=== PATIENT | male | born 1975 | race Caucasian/White ===

== ENCOUNTER 2017-12-04 13:13 | Emergency (ER) | payer OTHER ==
[2017-12-04] MEDS ORDERED: Metoclopramide IV* 5 MG/ML 2 ML VIAL IV ONE (16:00)
[2017-12-04] MEDS ORDERED: HYDROmorphone INJ* 1 MG/ML CARPUJECT SYRINGE IV ONE ×2 (16:00→18:08)
[2017-12-04 16:19] LABS: ABS Basophils 0 10^3/ul (0-0.2); ABS Eosinophils 0.1 10^3/ul (0-0.6); ABS Lymphocytes 1.1 10^3/ul (1.0-4.8); ABS Monocytes 0.6 10^3/ul (0-0.8); ABS Neutrophils 5.2 10^3/ul (1.5-7.7); ABS Nucleated RBC 0 10^3/ul; Eosinophil % 1.1 % (0-6); Hematocrit 37 % (42-52); Hemoglobin 12.7 g/dl (14.0-18.0); Lymphocyte % 15.7 % (25-47); Mean Corpuscular HGB Conc 34 g/dl (31-36); Mean Corpuscular Hemoglobin 30 pg (27-31); Mean Corpuscular Volume 87 fL (80-94); Mean Platelet Volume 8.2 um3 (7.4-10.4); Nucleated Red Blood Cells % 0.1; Platelet Count 257 10^3/ul (150-450); Red Blood Count 4.27 10^6/ul (4.0-5.4); Red Cell Distribution Width 13 % (10.5-15)
[2017-12-04] MEDS ORDERED: HYDROmorphone INJ* 2 MG/ML CARPUJECT SYRINGE ONE (16:22)
--- NOTE | 2017-12-04 17:24 | RAD ---
HISTORY: Right upper quadrant pain x1 day and nausea x2 weeks. Patient also reports 20 pound weight loss in 3 weeks. COMPARISONS: Similar examination March 31, 2014. TECHNIQUE: Multiple transverse and longitudinal ultrasound images were obtained of the right upper quadrant. FINDINGS: LIVER: Relative to the previous ultrasound there has been development of diffuse heterogeneity of the liver. The liver is enlarged measuring 22.5 cm in greatest dimension. Normal hepatic and portal venous blood flow is duplicated with color flow imaging. There is no gross intrahepatic biliary duct dilatation. GALLBLADDER AND EXTRAHEPATIC BILIARY DUCT: The gallbladder is normal in appearance without intraluminal stones or other soft tissue masses. There is no pericholecystic fluid or gallbladder wall thickening. The common bile duct measures a maximum diameter of 3 mm. PANCREAS: The portions of the pancreas not obscured by bowel gas are normal in appearance. RIGHT KIDNEY: The right kidney measures 11.1 x 3.6 x 3.4 cm. The renal parenchyma appears to extend toward the midline beneath the superior mesenteric artery, a morphology consistent with a horseshoe kidney. AORTA AND IVC: The visualized portions are normal in appearance and not pathologically dilated. IMPRESSION: 1. THERE HAS BEEN INTERVAL DEVELOPMENT OF DIFFUSE HETEROGENEITY OF THE LIVER WHICH IS NOW MILDLY ENLARGED MEASURING 22.5 CM IN GREATEST CEPHALOCAUDAL DIMENSION. THIS IS NEW SINCE THE [address] OF THE ABDOMEN AND PELVIS INCLUDING 4 PHASE LIVER IMAGING PROTOCOL. 2. POSSIBLE HORSESHOE KIDNEY.
[2017-12-04] MEDS ORDERED: Iohexol 300* (CONTRAST) 10 ML SDV IV ONE (17:53)
[2017-12-04 17:55] VITALS: BP 123/67
[2017-12-04 18:02] LABS: Urine Appearance Clear; Urine Blood Negative (Negative); Urine Color Yellow; Urine Ketones Negative (Negative); Urine Protein Negative (Negative); Urine Specific Gravity 1.006 (1.010-1.030); Urine Urobilinogen Negative (Negative)
--- NOTE | 2017-12-04 19:10 | RAD ---
CLINICAL HISTORY: Right upper quadrant pain COMPARISON: Same day ultrasound of the right upper quadrant that demonstrates an enlarged and heterogeneous liver TECHNIQUE: Contrast enhanced CT examination of the abdomen and pelvis from the lung bases through the initial tuberosities. The patient received 117 mL Omnipaque 300 intravenously prior to imaging. Imaging of the abdomen was acquired noncontrast, arterial phase and delayed 5 minutes in addition to standard portal venous phase according to a 4 phase liver examination. The patient received oral contrast as well prior to imaging. FINDINGS: VISUALIZED LUNG BASES: At the right lower lobe there is a 3.6 cm soft tissue mass. Additional subcentimeter nodules are seen in the lower lobes. There is no pleural effusion. ABDOMEN AND PELVIS: The spleen and adrenal glands are grossly normal in appearance. The liver is a greatly enlarged measuring 23 cm in greatest cephalocaudal projection and up to 26 cm in the axial plane. The liver is heterogeneous with innumerable hypoenhancing lesions throughout. These lesions are most readily apparent on the portal venous phase. For example there is a low-attenuation lesion measuring 2.2 cm in the right lobe of the liver (series 5 image 27). The biliary ducts are prominent but not pathologically dilated. The head of the pancreas is enlarged measuring 3.4 cm in greatest axial dimension. The gallbladder is normal. There is a horseshoe kidney. The kidney is otherwise normal in appearance without signs of obstruction or suspicious masses. Immediately posterior and lateral to the right psoas muscle is a 1 cm soft tissue nodule (axial image 41, series 5) of uncertain clinical significance. Evaluation of the gastrointestinal tract is limited without oral contrast. The small and large bowel are not distended. There is no gross retroperitoneal or mesenteric lymphadenopathy. The pelvic viscera is normal in appearance. 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 The abdominal aorta and iliac arteries are normal in course and diameter. There is an 8 determine and compression fracture involving the right of midline posterior inferior L1 vertebral body. At the right of midline posterior and inferior portion of the L2 vertebral body there is a focal lucent lesion. At the left of midline anterior L4 vertebral body there is a 1 cm lucent lesion. IMPRESSION: 1. The enlarged liver is largely replaced by low-attenuation lesions, the larger lesions likely have necrotic centers. There is an isoattenuating 3.4 cm mass at the pancreatic head suspicious for pancreatic cancer in this clinical setting. 2. There is a 3.6 cm right lower lobe pulmonary mass in addition to subcentimeter lesions in the bilateral lung bases. 3. Lucent lesions in the vertebral bodies are likely metastases in this clinical setting. 4. Incidentally noted is a horseshoe kidney without acute renal abnormality.
--- NOTE | 2017-12-04 20:21 | ED ---
Justo Taveras Natalie, scribed for Marlon Liao MD on 12/04/17 at 1604 . Abdominal Pain/Male - HPI Summary HPI Summary: The pt is a 42 y/o M presenting to the ED c/o RUQ abd pain starting three weeks ago, worsening last night into this morning. The pain radiates to his back, feeling like a pulled muscle. The pain is described as sharp and intense as if hes being shot or stabbed. The pain is rated 6/10 in severity. The pain is aggravated by movement and sitting up. The pain is alleviated by rest and lying down. Pt denies nausea and abnormal BM/urination. He states he has had this pain before with bloating and nausea during eating, but its worse now. He is not currently nauseous. He has had imaging done before, and the pain has gone away after eating better. Today, the pt has eaten and [place] muffin and chicken salad wrap without any effect. PSHx: lymphnode biopsy, cosmetic reconstruction of toe. - History of Current Complaint Chief Complaint: EDAbdPain Stated Complaint: FLANK PAIN Time Seen by Provider: 12/04/17 15:50 Hx Obtained From: Patient Onset/Duration: Sudden Onset, Lasting Weeks - three weeks, Still Present, Worse Since - last night Pain Intensity: 6 Pain Scale Used: 0-10 Numeric Location: Discrete At: RUQ Radiates: Yes Radiates to: Back Character: Sharp, Other: - intense, stabbing Aggravating Factor(s): Movement, Other: - sitting up Alleviating Factor(s): Other: - rest, lying down Associated Signs And Symptoms: Negative: Urinary Symptoms, Decreased Appetite, Nausea - Allergies/Home Medications Allergies/Adverse Reactions: Allergies Allergy/AdvReac Type Severity Reaction Status Date / Time No Known Allergies Allergy Verified 12/04/17 13:18 Home Medications: Home Medications Hydrocodone/Acetamin 10/325(NF [Luebbering 10/325 (NF)] 1 - 2 tab PO .Q4-6H PRN 12/04 [History Confirmed 12/04/17] Sucralfate TAB* [Carafate*] 1 gm PO ACHS 12/04/17 [History Confirmed 12/04/17] PMH/Surg Hx/FS Hx/Imm Hx Opthamlomology History: Denies: Hx Legally Blind EENT History: Denies: Hx Deafness - Surgical History Surgery Procedure, Year, and Place: lymphnode biopsy (2000), cosmetic reconstruction of toe Infectious Disease History: No Infectious Disease History: Denies: Traveled Outside the [place] in Last 30 Days - Family History Known Family History: Negative: Hypertension Review of Systems Positive: Abdominal Pain - RUQ, radiating to back, Other - normal BM. Negative : Nausea Positive: other - normal urination All Other Systems Reviewed And Are Negative: Yes Physical Exam - Summary Physical Exam Summary: Appearance: The patient is well-nourished in no acute distress and in no acute pain. Skin: The skin is warm and dry and skin color reflects adequate perfusion. HEENT: The head is normocephalic and atraumatic. The pupils are equal and reactive. The conjunctivae are clear and without drainage. Nares are patent and without drainage. Mouth reveals moist mucous membranes and the throat is without erythema and exudate. The external ears are intact. The ear canals are patent and without drainage. The tympanic membranes are intact. Neck: the neck is supple with full range of motion and non-tender. There are no carotid bruits. There is no neck vein distension. Respiratory: Chest is non-tender. Lungs are clear to auscultation and breath sounds are symmetrical and equal. Cardiovascular: Heart is regular rate and rhythm. There is no murmur or rub auscultated. There is no peripheral edema and pulses are symmetrical and equal. Abdomen: The abdomen is soft and tender in the right upper quadrant. Positive Wynn's signs. There are normal bowel sounds heard in all four quadrants and there is no organomegaly palpated. Musculoskeletal: There is no back tenderness noted. Extremities are non-tender with full range of motion. There is good capillary refill. There is no peripheral edema or calf tenderness elicited. Neurological: Patient is alert and oriented to person, place and time. The patient has symmetrical motor strength in all four extremities. Cranial nerves are grossly intact. Deep tendon reflexes are symmetrical and equal in all four extremities. Psychiatric: The patient has an appropriate affect and does not exhibit any anxiety or depression. Triage Information Reviewed: Yes Vital Signs On Initial Exam: Initial Vitals Temp Pulse Resp BP Pulse Ox 98.2 F 74 16 113/91 97 12/04/17 13:15 12/04/17 13:15 12/04/17 13:15 12/04/17 13:15 12/04/17 13:15 Vital Signs Reviewed: Yes Diagnostics - Vital Signs Vital Signs Temp Pulse Resp BP Pulse Ox 12/04/17 13:15 98.2 F 74 16 113/91 97 - Laboratory Lab Results: Lab Results 12/04/17 12/04/17 12/04/17 Range/Units 16:08 16:08 16:08 WBC 7.0 (3.5-10.8) 10^3/ul RBC 4.27 (4.0-5.4) 10^6/ul Hgb 12.7 L (14.0-18.0) g/dl Hct 37 L (42-52) % MCV 87 (80-94) fL MCH 30 (27-31) pg MCHC 34 (31-36) g/dl RDW 13 (10.5-15) % Plt Count 257 (150-450) 10^3/ul MPV 8.2 (7.4-10.4) um3 Neut % (Auto) 74.3 (38-83) % Lymph % (Auto) 15.7 L (25-47) % [place] % (Auto) 8.4 H (0-7) % Eos % (Auto) 1.1 (0-6) % Baso % (Auto) 0.5 (0-2) % Absolute Neuts (auto) 5.2 (1.5-7.7) 10^3/ul Absolute Lymphs (auto) 1.1 (1.0-4.8) 10^3/ul Absolute Monos (auto) 0.6 (0-0.8) 10^3/ul Absolute Eos (auto) 0.1 (0-0.6) 10^3/ul Absolute Basos (auto) 0 (0-0.2) 10^3/ul Absolute Nucleated RBC 0 10^3/ul Nucleated RBC % 0.1 Sodium 134 L (139-145) mmol/L Potassium 4.1 (3.5-5.0) mmol/L Chloride 99 L (101-111) mmol/L Carbon Dioxide 30 (22-32) mmol/L Anion Gap 5 (2-11) mmol/L BUN 6 (6-24) mg/dL Creatinine 0.80 (0.67-1.17) mg/dL Est GFR ( Amer) 135.1 (>60) Est GFR (Non-Af Amer) 105.0 (>60) BUN/Creatinine Ratio 7.5 L (8-20) Glucose 95 (70-100) mg/dL Lactic Acid 0.9 (0.5-2.0) mmol/L Calcium 8.6 (8.6-10.3) mg/dL Total Bilirubin 0.60 (0.2-1.0) mg/dL AST 56 H (13-39) U/L ALT 50 (7-52) U/L Alkaline Phosphatase 155 H (34-104) U/L C-Reactive Protein 26.88 H (< 5.00) mg/L Total Protein 6.3 L (6.4-8.9) g/dL Albumin 3.7 (3.2-5.2) g/dL Globulin 2.6 (2-4) g/dL Albumin/Globulin Ratio 1.4 (1-3) Lipase < 10 L (11.0-82.0) U/L Urine Color Urine Appearance Urine pH (5-9) Ur Specific [place] (1.010-1.030) Urine Protein (Negative) Urine Ketones (Negative) Urine Blood (Negative) Urine Nitrate (Negative) Urine Bilirubin (Negative) Urine Urobilinogen (Negative) Ur Leukocyte Esterase (Negative) Urine Glucose (Negative) 12/04/17 Range/Units 17:47 WBC (3.5-10.8) 10^3/ul RBC (4.0-5.4) 10^6/ul Hgb (14.0-18.0) g/dl Hct (42-52) % MCV (80-94) fL MCH (27-31) pg MCHC (31-36) g/dl RDW (10.5-15) % Plt Count (150-450) 10^3/ul MPV (7.4-10.4) um3 Neut % (Auto) (38-83) % Lymph % (Auto) (25-47) % [place] % (Auto) (0-7) % Eos % (Auto) (0-6) % Baso % (Auto) (0-2) % Absolute Neuts (auto) (1.5-7.7) 10^3/ul Absolute Lymphs (auto) (1.0-4.8) 10^3/ul Absolute Monos (auto) (0-0.8) 10^3/ul Absolute Eos (auto) (0-0.6) 10^3/ul Absolute Basos (auto) (0-0.2) 10^3/ul Absolute Nucleated RBC 10^3/ul Nucleated RBC % Sodium (139-145) mmol/L Potassium (3.5-5.0) mmol/L Chloride (101-111) mmol/L Carbon Dioxide (22-32) mmol/L Anion Gap (2-11) mmol/L BUN (6-24) mg/dL Creatinine (0.67-1.17) mg/dL Est GFR ( Amer) (>60) Est GFR (Non-Af Amer) (>60) BUN/Creatinine Ratio (8-20) Glucose (70-100) mg/dL Lactic Acid (0.5-2.0) mmol/L Calcium (8.6-10.3) mg/dL Total Bilirubin (0.2-1.0) mg/dL AST (13-39) U/L ALT (7-52) U/L Alkaline Phosphatase (34-104) U/L C-Reactive Protein (< 5.00) mg/L Total Protein (6.4-8.9) g/dL Albumin (3.2-5.2) g/dL Globulin (2-4) g/dL Albumin/Globulin Ratio (1-3) Lipase (11.0-82.0) U/L Urine Color Yellow Urine Appearance Clear Urine pH 7.0 (5-9) Ur Specific [place] 1.006 L (1.010-1.030) Urine Protein Negative (Negative) Urine Ketones Negative (Negative) Urine Blood Negative (Negative) Urine Nitrate Negative (Negative) Urine Bilirubin 1+ A (Negative) Urine Urobilinogen Negative (Negative) Ur Leukocyte Esterase Negative (Negative) Urine Glucose Negative (Negative) Result Diagrams: 12/04/17 16:08 12/04/17 16:08 Lab Statement: Any lab studies that have been ordered have been reviewed, and results considered in the medical decision making process. - CT Abd/Pel CT CT Interpretation: Positive (See Comments) - 1. The enlarged liver is largely replaced by low-attenuation lesions, the larger lesions likely have necrotic centers. There is an isoattenuating 3.4 cm mass at the pancreatic head suspicious for pancreatic cancer in this clinical setting. 2. There is a 3.6 cm right lower lobe pulmonary mass in addition to subcentimeter lesions in the bilateral lung bases. 3. Lucent lesions in the vertebral bodies are likely metastases in this clinical setting. 4. Incidentally noted is a horseshoe kidney without acute renal abnormality. ED physician has reviewed this report. CT Interpretation Completed By: Radiologist - Ultrasound No standard instances Ultrasound Interpretation: Positive (See Comments) - Gallbladder US: 1. There has been interval development of diffuse heterogeneity of the liver which is now mildly enlarged measuring 22.5 cm in greatest cephalocaudal dimension. This is new since the March 31, [address] of the abdomen and pelvis including 4 phase liver imaging protocol. 2. Possible horseshoe kidney. ED physician has reviewed this report. Ultrasound Interpretation Completed By: Radiologist Re-Evaluation - Re-Evaluation First Eval Re-Evaluation Time: 19:30 Change: Improved Comment: The pt's pain is being managed. Pt is agreeable to being discharged home. Abdominal Pain Fem Course/Dx - Course Course Of Treatment: Mr. Win presents with 3 weeks of epigastric/RUQ pain. He saw his PCP and was started on Sulcrafate and Omeprazole. The pain has worsened and seems more RUQ in the last couple of days. He was tender in the RUQ with a positive Wynn's sign and an U/S was peerformed. This should an enlarged, heterogeneic liver so CT was obtained. This showed multiple liver masses with a pancreatic mass, a lung mass and multiple rachael masses. I spoke with Dr. Norton who was willing to have him admitted to the hospital or follow with him on Thursday AM. I talked with Mr. Win and let him know that the working diagnosis at this time is pancreatic cancer but that more W/U is needed. He elected to go home and follow on Thursday. I gave him Luebbering for pain and ativan to help him sleep. He has had a couple of doses of dilaudid IV here and tolerated them well. - Diagnoses Provider Diagnoses: Pancreatic mass, Liver masses, Lung mass, Bone lesion Discharge - Sign-Out/Discharge Documenting (check all that apply): Discharge/Admit/Transfer - Discharge Plan Condition: Stable Disposition: HOME Prescriptions: HYDROcodone/ACETAMIN 5-325 MG* [Luebbering 5-325 TAB*] 1 tab PO Q6H PRN #20 tab MDD 4 PRN Reason: Pain LORazepam TAB(*) [Ativan TAB(*)] 1 mg PO Q6H PRN #20 tab MDD 4 PRN Reason: Pain Referrals: Trent Steven MD [Primary Care Provider] - David Norton MD [Medical Doctor] - 12/07/17 Additional Instructions: Take Hydrocodone and Ativan as prescribed. Follow up with Dr. Norton, oncology, on 12/07/17. If any new or worsening symptoms occur, such as fever, vomiting, yellowing of the skin, or increasing pain, please return to the emergency department immediately. - Billing Disposition and Condition Condition: STABLE Disposition: HOME The documentation as recorded by the Justo bryan Natalie accurately reflects the service I personally performed and the decisions made by me, Marlon Liao MD.
[2017-12-04] MEDS ORDERED: LORazepam TAB(*) 1 MG PO ONE (20:28)
[2017-12-04] MEDS ORDERED: HYDROcodone/ACETAMIN 5-325 MG* 1 TAB PO ONE (20:28)
== END 2017-12-04 20:05 | disposition home or self-care (01) ==
LOC: ED 13:13
DX: K86.9 Disease of pancreas, unspecified (principal); R16.0 Hepatomegaly, not elsewhere classified; M89.9 Disorder of bone, unspecified; R10.11 Right upper quadrant pain; R91.8 Other nonspecific abnormal finding of lung field
CPT/HCPCS: 36415; 74178; 76705; 80053; 81003; 83605; 83690; 85025; 86140; 96374; 96375; 99283; A9270-GY; J1170; J2765; Q9967

== ENCOUNTER 2017-12-16 07:04 | Day surgery (SDC) | payer OTHER ==
[~2017-12-16 07:04] MED LIST: Buffered Lidocaine 0.9% SYRIN* 5 ML/SYR SYRINGE INTRADERM ONE
[2017-12-16] MEDS ORDERED: ceFAZolin 2 GM PREMIX (*) 2 GM/50 ML BAG IVPB ONE (07:10)
[2017-12-16] MEDS ORDERED: Buffered Lidocaine 0.9% SYRIN* 5 ML/SYR SYRINGE ONE (07:10)
[2017-12-16] MEDS ORDERED: Lidocain 1% EPI 1:100,000 * 30 ML MDV ONE (07:21)
[2017-12-16] MEDS ORDERED: Midazolam* 1 MG/ML 5 ML VIAL (5 MG) ONE ×2 (08:31→09:00)
[2017-12-16] MEDS ORDERED: fentaNYL* 50 MCG/ML 2 ML VIAL (100 MCG VIAL) ONE (08:46)
[2017-12-16] MEDS ORDERED: Ondansetron INJ* 2 MG/ML VIAL IV PRN (09:05)
[2017-12-16] MEDS ORDERED: oxyCODONE/Acetamin 5/325 MG* TAB PO PRN (09:05)
[2017-12-16] MEDS ORDERED: HYDROcodone/ACETAMIN 5-325 MG* 1 TAB PO PRN (09:05)
[2017-12-16] MEDS ORDERED: DiMENhydriNATE IV* 50 MG/ML VIAL IV PUSH PRN (09:05)
[2017-12-16] MEDS ORDERED: Naloxone* 0.4 MG/ML 1 ML VIAL IV PRN (09:05)
[2017-12-16] MEDS ORDERED: fentaNYL* 50 MCG/ML 2 ML VIAL (100 MCG VIAL) IV PRN (09:05)
--- NOTE | 2017-12-16 09:25 | BRIEFOPN ---
Brief Operative Note - Surgery Procedures: Procedures Pre-OP Diagnoses: malignant melanoma Post-op Diagnosis: same Procedure: Insertion of powerport Surgeon: Jac Asst: none Anethesia: local, MAC EBL: minimal IVF: minimal Specimen: none Drains: none 8Fr single lumen power port via R SCV
[2017-12-16 09:44] VITALS: BP 116/55
--- NOTE | 2017-12-16 10:48 | RAD ---
CPT II Codes: G9500 INDICATION: PowerPort placement. Fluoroscopic services provided for referring physician. 3 seconds of fluoroscopy time was used. Single spot image demonstrates placement of a indwelling central catheter in the superior vena cava. IMPRESSION: Fluoroscopic services provided for referring physician for PowerPort placement.
--- NOTE | 2017-12-17 07:11 | OP ---
CC: Dr. Trent Steven; Dr. David Norton * DATE OF OPERATION: 12/16/17 - [facility] DATE OF : [birth year] SURGEON: Dr. Jamar Nathan ANESTHESIOLOGIST: Dr. Canales. ANESTHESIA: Local MAC. PRE-OP DIAGNOSIS: Malignant melanoma. POST-OP DIAGNOSIS: Malignant melanoma. OPERATIVE PROCEDURE: Insertion of PowerPort. ESTIMATED BLOOD LOSS: Minimal. FLUIDS: No crystalloid fluid given. SPECIMEN: None. 8 [place]anese PowerPort inserted via the right subclavian vein. DESCRIPTION OF PROCEDURE: The patient was identified in the preoperative area, marked, consent signed. He understood the procedure. Taken to the OR. Placed in the operating table in supine position. Preoperative antibiotics were given. Sequential devices placed on bilateral lower extremities. Gentle sedation was given. The patient's right upper chest and neck were clipped of hair and prepped and draped in a standard surgical fashion and time-out was performed. An incision inferior to the subclavian was made after injection of lidocaine with epinephrine. We created a pocket for the PowerPort. Next, the subclavian vein was accessed and wire inserted. The wire was short of its positioning with fluoroscopy. The wire was then brought through the previously made incision. The vein dilated and a split-away catheter inserted. An 8 Bhutanese tubing was then inserted, cut to size and placed onto the PowerPort. We shot its positioning on with fluoroscopy. Sutured the PowerPort into the pocket with 0 Surgipro sutures and we were able to access the port, aspirate blood and injected with fresh saline and then heparinized saline. The wound was irrigated and reapproximated with 3-0 Vicryl sutures followed by 4-0 Monocryl subcuticular sutures. Steri-Strips and sterile dressings were applied and the patient tolerated the procedure well. He was transferred to PACU in stable condition. [id number]/[facility] #: [id number] [facility]OS[facility]ITALMark
== END 2017-12-16 09:50 | disposition home or self-care (01) ==
LOC: OR 07:04
PROVIDERS: ATTEND Surgery
DX: C43.59 Malignant melanoma of other part of trunk (principal); Z87.891 Personal history of nicotine dependence; F41.9 Anxiety disorder, unspecified
CPT/HCPCS: 76000; C1788; J0690; J1642; J2250; J3010